=== PATIENT | female | born 1935 | race Caucasian/White ===

== ENCOUNTER 2016-12-23 09:11 | Emergency (ER) | payer OTHER ==
[~2016-12-23] VITALS: Ht 167.6 cm; Wt 63.2 kg
[~2016-12-23 09:11] MED LIST: AMLODIPINE BESYL5 MG PO; ASPIRIN81 M1 PO; ASPIRIN81 M2 PO; BYSTOLIC10 MG PO; Flagyl PO; GLUCOSAMINE PO; GLUCOSAMINE1000 MG PO; KEFLEX500 MG PO; LABETALOL HCL100 MG PO; LEVOTHYROXINE25 MCG PO; LIPITOR20 MG PO; LIPITOR40 MG PO; LISINOPRIL-HCT1 EAC3 PO; NORVASC5 MG PO; Norvasc PO; Robitussin, Organidi PO; TYLENOL EXTRA500 MG PO; Tessalon Perle PO; VITAMIN D1000 UNIT PO
[2016-12-23 12:50] VITALS: BP 141/71
== END 2016-12-23 12:51 | disposition home or self-care (01) ==
LOC: EME 09:11
DX: S51.811A Laceration without foreign body of right forearm, initial encounter (principal); W18.30XA Fall on same level, unspecified, initial encounter; E78.5 Hyperlipidemia, unspecified; I10 Essential (primary) hypertension; Z79.82 Long term (current) use of aspirin
CPT/HCPCS: 73080; 73090; 99281; 99284

== ENCOUNTER 2017-10-26 15:38 | Emergency (ER) | payer OTHER ==
[~2017-10-26] VITALS: Ht 152.4 cm; Wt 63.0 kg
[2017-10-26 17:26] VITALS: BP 192/83
== END 2017-10-26 17:37 | disposition home or self-care (01) ==
LOC: EME 15:38
DX: S00.81XA Abrasion of other part of head, initial encounter (principal); S40.212A Abrasion of left shoulder, initial encounter; S40.211A Abrasion of right shoulder, initial encounter; S80.212A Abrasion, left knee, initial encounter; S80.211A Abrasion, right knee, initial encounter; W01.0XXA Fall on same level from slipping, tripping and stumbling without subsequent striking against object, initial encounter
CPT/HCPCS: 70450; 70486; 73030; 73564; 99281; 99284